=== PATIENT | female | born 1950 | race Caucasian/White ===

== ENCOUNTER 2017-09-06 08:42 | Inpatient (IN) | payer OTHER ==
[~2017-09-06] VITALS: Ht 157.5 cm; Wt 108.9 kg
[~2017-09-06 08:42] MED LIST: CIPROFLOXACIN750 MG PO; CLONAZEPAM1 MG PO; DOCUSATE SODIU100 MG PO; FLEXERIL PO; LOSARTAN POTASS50 MG PO; METFORMIN HCL500 M1 PO; METHYLPRED4 MG/DOSE- PO; NEURONTIN PO; NEURONTIN300 MG PO; PERCOCET 5/3251 TAB PO; SYNTHROID75 MCG PO
== END 2017-09-25 09:50 | disposition home or self-care (01) | DRG 603 ==
LOC: MEDJ 08:42 → MEDI 08:42 → MEDJ 09-18 13:17
PROC: B54CZZZ Ultrasonography of Left Lower Extremity Veins (ICD-10-PCS; 2017-09-07)
PROC: 3E0F7GC Introduction of Other Therapeutic Substance into Respiratory Tract, Via Natural or Artificial Opening (ICD-10-PCS; principal; 2017-09-23)
DX: L03.116 Cellulitis of left lower limb (principal); J45.31 Mild persistent asthma with (acute) exacerbation; E11.9 Type 2 diabetes mellitus without complications; I10 Essential (primary) hypertension; E03.8 Other specified hypothyroidism; M43.16 Spondylolisthesis, lumbar region; J20.9 Acute bronchitis, unspecified; K52.89 Other specified noninfective gastroenteritis and colitis

== ENCOUNTER 2018-01-15 07:00 | Day surgery (SDC) | payer OTHER ==
[~2018-01-15] VITALS: Ht 160 cm; Wt 59.0 kg
[2018-01-16] MEDS ORDERED: DOCUSATE SODIU100 MG PO (09:38)
[2018-01-16] MEDS ORDERED: GABAPENTIN800 MG PO (09:38)
[2018-01-16] MEDS ORDERED: PERCOCET 5-3251 EACH PO (09:40)
[2018-01-16] MEDS ORDERED: CLONAZEPAM1 MG PO (09:40)
[2018-01-16] MEDS ORDERED: CIPROFLOXACIN750 MG PO (09:41)
== END 2018-01-16 08:00 | disposition home or self-care (01) ==
LOC: CIR.AMB 07:00 → EDSTATUS 10:15 → SURG 10:15 → PED 15:21 → O/R 15:21 → CIR.AMB 01-16 08:00 → PED 01-16 14:45
DX: M48.061 Spinal stenosis, lumbar region without neurogenic claudication (principal); I10 Essential (primary) hypertension; E11.9 Type 2 diabetes mellitus without complications

== ENCOUNTER 2019-05-18 22:52 | Inpatient (IN) | payer OTHER ==
[~2019-05-18] VITALS: Ht 160 cm; Wt 110.2 kg
[~2019-05-18 22:52] MED LIST changes: +GABAPENTIN800 MG PO; +PERCOCET 5-3251 EACH PO
[2019-05-18] MEDS ORDERED: AVALIDE 300-121 EACH (23:07)
[2019-05-18] MEDS ORDERED: GLIMEPIRIDE2 MG (23:08)
--- NOTE | 2019-05-18 23:14 | NUR ---
PACIENTE ALERTA Y ORIENTADA EN VICKI FRANCESCA ESFERAS QUIEN REFIERE DOLOR EN INFLAMACION EN PIERNA LT. SE OBSERVA PIERNA EDEMATOSA, ENROJECIDA Y CALIENTE AL TACTO. PACIENTE REFIERE HX DE CELULITIS.
--- NOTE | 2019-05-19 01:33 | NUR ---
MISS CASTILLO ORIENTA AL PACIENTE SOBRE TRATAMIENTO MEDICO EL CUAL REFIERE ENTENDER, SE REALIZA MUESTRA DE JEAN DE FORMA ASEPTICA Y ADMINISTRA MEDICAMENTO HARVINDER ORDEN MEDICA. SE REALIZA CULTIVO DE JEAN HARVINDER PROTOCOLO. PACIENTE TOLERA INTERVENCION DE LA RN.
== END 2019-05-27 10:54 | disposition home or self-care (01) | DRG 603 ==
LOC: ER 22:52 → MEDJ 05-19 06:34
PROVIDERS: ADMIT Internal Medicine Cardiovascular Disease
DX: L03.116 Cellulitis of left lower limb (principal); E03.9 Hypothyroidism, unspecified; I10 Essential (primary) hypertension; J20.9 Acute bronchitis, unspecified; E11.649 Type 2 diabetes mellitus with hypoglycemia without coma

== ENCOUNTER → 2021-01-13 | Outpatient (CLI) | payer OTHER ==
[~2021-01-13] MED LIST changes: +AVALIDE 300-121 EACH; +GLIMEPIRIDE2 MG
== END | disposition home or self-care (01) ==
LOC: PPH VACUNA 09:00
PROVIDERS: ATTEND Emergency Medicine Pediatric Emergency Medicine
DX: Z23 Encounter for immunization (principal)